=== PATIENT | female | born 1930 | race Caucasian/White ===

== ENCOUNTER → 2017-09-19 | Outpatient (CLI) | payer OTHER ==
[~2017-09-19] VITALS: Ht 160 cm; Wt 67.6 kg
[~2017-09-19] MED LIST: ACETAMINOPHEN325 M1 PO; ELAVIL PO; ESTROGEN/METHYL1 TA1 PO; GABAPENTIN 100100 MG PO; LORTAB 7.5/5001 TA3 PO; MILK OF MA2400 MG/10 PO; MOBIC7.5 MG PO; TRAMADOL 50 MG50 MG PO
--- NOTE | ~2017-09-19 | HPC ---
[facility] [address] [place] [address] PAIN MANAGEMENT CONSULTATION Name: TYLOR NORTON Room #: REG RAQUEL De Leon#: [id number] Admission: 09/19/17 Attend Phys: Aristeo Tovar DO Discharge: Date of : [birth year] Report #: [id number] THIS REPORT FOR: //name// CC: Mulugeta Tovar HISTORY OF PRESENT ILLNESS: The patient is an 87-year-old female, prior seen in consultation at the request of Dr. Mulugeta Farah for evaluation of pain, low back, right greater than left leg. The patient notes she has had chronic axial back pain. States on 07/13/2017, her left knee gave out and she fell backwards and pain has been increased since that time. She tried tramadol, gabapentin and Tylenol with nominal efficacy. Noteworthy in the distant past, the patient had had a cervical epidural steroid injection in 2010 for cervical radiculopathy. Still has some component of those symptoms. She describes the pain has exacerbated with standing, some relief when she is recumbent. Rates pain anywhere from 8-10 on VAS. She describes pain that is continuous, constant and aching. REVIEW OF SYSTEMS: Complete review of systems attached to chart and gone over with the patient. She is . She does not smoke or drink alcohol to excess. She has enjoyed remarkably good health, had an emergent cholecystectomy in 2015, hysterectomy in 1971. Really takes no medications to speak of. She has been retired since 1984. Pain impact score is 29/70. PHYSICAL EXAMINATION: GENERAL: A 5 feet 3 inches and 149 pounds female. VITAL SIGNS: Blood pressure is 137/76, pulse 86 and respirations 16. NEUROLOGICAL: Cranial nerves 2 through 12 are grossly intact. HEENT: Pupils equal, react to light and accommodation. Extraocular muscles are intact. NECK: Cervical range of motion exacerbates the pain with positive Lhermitte's going to the left side, although the upper extremity strength is symmetric. HEART: Regular and rhythmical with a subtle 1-2/6 systolic ejection murmur. LUNGS: Clear to auscultation. ABDOMEN: Benign. MUSCULOSKELETAL: Rises from chair using armrest, has an antalgic gait favoring the right leg. Right leg is diminished in strength compared to the left. Positive straight leg raise bilaterally, right greater than left. Patellar and Achilles reflexes are diminished but symmetric. RADIOLOGICAL DATA: X-rays of the lumbar spine reviewed showing a little thoracolumbar scoliosis, they are dated from 2016, grade 1 anterolisthesis at L4-L5 with neural foraminal narrowing. [address] [address] PAIN MANAGEMENT CONSULTATION Name: TYLOR NORTON JESSE Room #: REG [facility] Moises#: [id number] Admission: 09/19/17 Attend Phys: Aristeo Tovar DO Discharge: Date of : [birth year] Report #: [id number] ASSESSMENT: Symptomatic lumbar radiculopathy, clinical exam and history, component of lumbar spondylosis and cervical radiculopathy by history. RECOMMENDATIONS: Epidural injection under fluoroscopy today, L5-S1; follow up in 4 weeks to reevaluate efficacy. Consider either right L4-L5 transforaminal or midline L3-L4 epidural injection if indicated clinically in next exam. Thanks for allowing me to participate in the patient's care. I will keep you abreast of her progress. PROCEDURE NOTE: Lumbar epidural injection with fluoroscopy. PROCEDURE NOTE: After both written and informed consent to include risk of spinal cord damage, increased pain, weakness and dural puncture, the patient was taken to the fluoroscopy suite, placed in the prone position. After sterile prep and drape, a skin wheal with lidocaine was raised. A 22-gauge epidural Tuohy needle was inserted in the midline at L5-S1 with good loss to resistance. Negative aspiration for cerebrospinal fluid or blood was noted. Then 1 mL of Omnipaque under biplanar fluoroscopy showed good spread within the epidural space. This was followed with 80 mg of triamcinolone plus 1 mL of 1.5% preservative-free Xylocaine, 0.5 mL Xylocaine was then injected to flush the needle; it was removed. The patient was monitored for an appropriate period of time and discharged in good and stable condition. By: [id number] Aristeo Tovar DO /nt
[2017-09-19 13:50] VITALS: BP 137/76
== END | disposition home or self-care (01) ==
LOC: PAIN 07:16
DX: M47.896 Other spondylosis, lumbar region (principal); M54.12 Radiculopathy, cervical region; G89.29 Other chronic pain; Z90.49 Acquired absence of other specified parts of digestive tract; Z90.710 Acquired absence of both cervix and uterus; Z98.890 Other specified postprocedural states; Z79.899 Other long term (current) drug therapy

== ENCOUNTER → 2017-10-17 | Outpatient (CLI) | payer OTHER ==
[~2017-10-17] VITALS: Ht 160 cm; Wt 67.2 kg
[~2017-10-17] MED LIST changes: -ACETAMINOPHEN325 M1 PO; +TYLENOL EXTRA500 MG PO
--- NOTE | ~2017-10-17 | HPC ---
[facility] [place] [address] [address] PAIN MANAGEMENT CONSULTATION Name: TYLOR NORTON Room #: REG RAQUEL De Leon#: [id number] Admission: 10/17/17 Attend Phys: Aristeo Tovar DO Discharge: Date of : [birth year] Report #: [id number] THIS REPORT FOR: //name// CC: Mulugeta Tovar DATE OF SERVICE: 10/17/2017 HISTORY OF PRESENT ILLNESS: The patient is an 87-year-old female, prior seen in consultation on 09/19/2017, diagnosed with symptomatic lumbar radiculopathy, given epidural injection at L5-S1 at that time. Returns to pain clinic today noting incremental improvement of baseline pain, stating 90% relief following the injection with pain still better on the left, but still some residual pain on the right side. She notes the pain is exacerbated with standing or walking, rates up to an 8 or 9 with activity. She does take Tylenol extra strength for headaches. She stopped taking gabapentin at bedtime and is now having trouble with sleep. She does take tramadol at bedtime. PHYSICAL EXAMINATION: GENERAL: Shows an 87-year-old female with BMI 26.3 kilograms per meter squared. VITAL SIGNS: Stable as noted in the EMR. MUSCULOSKELETAL: Rises from chair using the armrest, modestly antalgic gait, diffuse tenderness across the low back, positive straight leg raise on the right. ASSESSMENT: Symptomatic lumbar radiculopathy by clinical exam and history, incremental improvement following 1 epidural injection. RECOMMENDATION: Repeat epidural injection under fluoroscopy today at L5-S1. Follow up in 4 weeks for reevaluation, cancel if doing well. PROCEDURE: Lumbar epidural injection under fluoroscopy. PROCEDURE NOTE: After both written and informed consent to include risk of spinal cord damage, increased pain, weakness and dural puncture, the patient was taken to the fluoroscopy suite, placed in the prone position. After sterile prep and drape, a skin wheal with lidocaine was raised. A 22-gauge epidural Tuohy needle was inserted in the midline at L5-S1 with good loss to resistance. Negative aspiration for cerebrospinal fluid or blood was noted. Then 1 mL of Omnipaque under biplanar fluoroscopy showed good spread within the epidural space. This was followed with 80 mg of triamcinolone plus 1 mL of 1.5% preservative-free Xylocaine, 0.5 mL Xylocaine was then injected to flush the [facility] [address] [place] [address] PAIN MANAGEMENT CONSULTATION Name: TYLOR NORTON Room #: REG [facility] Moises#: [id number] Admission: 10/17/17 Attend Phys: Aristeo Tovar DO Discharge: Date of : [birth year] Report #: [id number] needle; it was removed. The patient was monitored for an appropriate period of time and discharged in good and stable condition. <ELECTRONICALLY SIGNED> By: Aristeo Tovar DO 10/19/17 0816 [id number] Aristeo Tovar DO /lupillo
[2017-10-17 13:23] VITALS: BP 133/60
== END | disposition home or self-care (01) ==
LOC: PAIN 07:05
DX: M54.16 Radiculopathy, lumbar region (principal); G89.29 Other chronic pain; Z98.890 Other specified postprocedural states

== ENCOUNTER → 2017-12-01 | Outpatient (CLI) | payer OTHER ==
[~2017-12-01] VITALS: Ht 160 cm; Wt 67.0 kg
--- NOTE | ~2017-12-01 | HPC ---
[facility] [place] [address] [address] PAIN MANAGEMENT CONSULTATION Name: TYLOR NORTON Room #: REG RAQUEL De Leon#: [id number] Admission: 12/01/17 Attend Phys: Aristeo Tovar DO Discharge: Date of : [birth year] Report #: [id number] THIS REPORT FOR: //name// CC: Mulugeta Tovar DATE OF SERVICE: 12/01/2017 The patient is a very pleasant 87-year-old female who has had 2 lumbar epidural injections, 09/19/2017 and 10/17/2017. She returns to pain clinic today noting both injections afforded near 80% relief, but pain has recurred to baseline. She currently rates her pain a 10 on a VAS. Pain is primarily in the low back, right greater than left leg, in fact right leg exclusively. She notes pain began in July, she fell while she came out of a restaurant. She notes she has a burning dysesthesia in the legs, exacerbated by standing and walking. PHYSICAL EXAMINATION: Shows an 87-year-old female, appearing somewhat younger than stated age. BMI is 26.2 kilograms per meter squared. Vital signs are stable as noted in the EMR. Rises from chair using armrest. Diffuse tenderness across the low back. Positive straight leg raise on the right with slight decreased right hip flexion, lower extremity extension strength. Reviewed diagnostic findings, noting grade 1 anterolisthesis at L4-L5 with some neuroforaminal narrowing at this level. ASSESSMENT: Symptomatic lumbar radiculopathy by clinical exam and history. RECOMMENDATIONS: Discussion with the patient today about therapeutic options. We would like to repeat epidural injection under fluoroscopy today. I did talk to the patient about possible spinal cord stimulator as a therapy modality to help with ongoing right radicular pain. We will want to get an MRI of the lumbar spine, however, if symptoms persist (prior diagnostic study was x-ray of the lumbar spine). ASSESSMENT: Symptomatic lumbar radiculopathy, symptomatic spinal stenosis, component of thoracolumbar scoliosis. RECOMMENDATION: Epidural injection under fluoroscopy today. Follow up if symptoms recur. We will want to get an MRI and further discuss spinal cord stimulator. I did give the patient print and video literature regarding the high frequency Nevro stimulator. ASSESSMENT: Symptomatic lumbar radiculopathy. [address] [address] PAIN MANAGEMENT CONSULTATION Name: TYLOR NORTON JESSE Room #: REG RAQUEL De Leon#: [id number] Admission: 12/01/17 Attend Phys: Aristeo Tovar DO Discharge: Date of : [birth year] Report #: [id number] PROCEDURE: Lumbar epidural injection under fluoroscopy. PROCEDURE NOTE: After both written and informed consent to include risk of spinal cord damage, increased pain, weakness and dural puncture, the patient was taken to the fluoroscopy suite, placed in the prone position. After sterile prep and drape, a skin wheal with lidocaine was raised. A 22-gauge epidural Tuohy needle was inserted in the midline at L5-S1 with good loss to resistance. Negative aspiration for cerebrospinal fluid or blood was noted. Then 1 mL of Omnipaque under biplanar fluoroscopy showed good spread within the epidural space. This was followed with 80 mg of triamcinolone plus 1 mL of 1.5% preservative-free Xylocaine, 0.5 mL Xylocaine was then injected to flush the needle; it was removed. The patient was monitored for an appropriate period of time and discharged in good and stable condition. <ELECTRONICALLY SIGNED> By: Aristeo Tovar DO 12/02/17 0727 [id number] Aristeo Tovar DO /nt
[2017-12-01 10:45] VITALS: BP 146/78
== END ==
LOC: PAIN 11-14 21:50
DX: M54.16 Radiculopathy, lumbar region (principal)